=== PATIENT | female | born 1960 | race Caucasian/White ===

== ENCOUNTER → 2018-12-20 | Day surgery (SDC) | payer MEDICARE ==
[2018-12-14 11:25] LABS: BASOPHILS # (AUTO) 0.1 (0.0-0.1); BASOPHILS % 0.5 % (0.0-1.0); EOSINOPHILS # (AUTO) 0.3 (0.0-0.4); EOSINOPHILS % 2.5 % (0.0-6.0); HEMATOCRIT 39.9 % (34.2-44.1); HEMOGLOBIN 13.2 g/dL (12.0-16.0); LYMPHOCYTES # (AUTO) 3.7 (1.0-3.2); LYMPHOCYTES % 33.3 % (18.0-39.1); MEAN CORPUSCULAR HEMOGLOBIN 28.8 pg (28-32); MEAN CORPUSCULAR HGB CONC 33.1 g/dL (31-35); MEAN CORPUSCULAR VOLUME 87.1 fL (81-99); MONOCYTES # (AUTO) 0.8 (0.2-0.8); MONOCYTES % 7.1 % (4.4-11.3); NEUTROPHILS # (AUTO) 6.2 (2.1-6.9); NEUTROPHILS % 56.2 % (38.7-80.0); PLATELET COUNT 357 x10e3/uL (140-360); RED BLOOD COUNT 4.58 x10e6/uL (3.6-5.1); RED CELL DISTRIBUTION WIDTH 14.2 % (11.7-14.4)
[2018-12-14 11:54] LABS: INR 0.89; PROTHROMBIN TIME 12.5 seconds (11.9-14.5)
[2018-12-14 11:55] LABS: PARTIAL THROMBOPLASTIN TIME 25.7 seconds (23.8-35.5)
[2018-12-14 12:06] LABS: ALANINE AMINOTRANSFERASE 18 IU/L (0-55); ALBUMIN 3.9 g/dL (3.5-5.0); ALBUMIN/GLOBULIN RATIO 0.9 (0.8-2.0); ALKALINE PHOSPHATASE 113 IU/L (40-150); ANION GAP 10.6 mmol/L (8-16); BLOOD UREA NITROGEN 14 mg/dL (7-26); BUN/CREATININE RATIO 18 (6-25); CARBON DIOXIDE 29 mmol/L (22-29); CHLORIDE 102 mmol/L (98-107); CREATININE, SERUM 0.77 mg/dL (0.57-1.11); EST GLOMERULAR FILTRATION RATE > 60 ML/MIN (60-); GLUCOSE 98 mg/dL (74-118); POTASSIUM 4.6 mmol/L (3.5-5.1); SODIUM 137 mmol/L (136-145)
--- NOTE | 2018-12-14 12:50 | Diagnostic Imaging Report ---
EXAM: CHEST 2 VIEWS DATE: 12/14/2018 10:38 AM INDICATION: ^PREOP FOR LEFT HEART CATHETERIZATION ^[id number] ^[id number] COMPARISON: None FINDINGS: Lines and tubes: None Heart size normal. No focal pulmonary opacity, pleural effusion or pneumothorax. Haziness at the medial right lung base compatible with epicardial fat pad. Upper abdomen unremarkable. No acute bony abnormality. IMPRESSION: No evidence for acute disease. Signed by: Dr. Devaughn Leblanc M.D. on 12/14/2018 12:47 PM
[~2018-12-20] VITALS: Ht 162.6 cm; Wt 74.8 kg
[2018-12-20] VITALS (19 sets, daily range): BP systolic 135–191; BP diastolic 69–98
[~2018-12-20] MED LIST: ALENDRONATE SOD70 MG PO; ASPIRIN325 MG PO; ATORVASTATIN CA20 MG PO; ATROPINE SULFATE 0.1 MG/ML 10ML SYR ONE; BENICAR20 MG PO; BIVALRIUDIN 250 MG/VIAL VIAL IV ONE; BROMFENAC OU; CLONIDINE HCL0.2 MG PO; CLOPIDOGREL BISULFATE 75 MG TAB ONE; CLOPIDOGREL75 MG PO; FENTANYL CITRATE/PF 100MCG/2 ML INJ ONE; HEPARIN SOD (PORCINE) 1000 UNIT/ML 30ML ONE; HEPARIN SOD/SOD CHLORIDE 2,000 ML ONE; HYDRALAZINE HCL 20 MG/ML VIAL ONE; IOPAMIDOL 370 MG/ML 200 ML INFUS..BTL INJ ONE; LIDOCAINE HCL 2% LOCAL 20 ML VIAL ONE; METFORMIN HCL500 MG PO; METOPROLOL TART25 MG PO; MIDAZOLAM HCL 2 MG/2 ML VIAL ONE; MORPHINE SULFATE INJ 4 MG/ML INJ 1ML ONE; NITROGLYCERIN/D5W 200 MCG/ML 250 ML ONE; NITROGLYCERIN0.4 MG SL; OMEPRAZOLE40 MG PO; PREDNISOLO15 MG/5 ML OU; RESTASIS1 EACH OS; SODIUM CHLORIDE 0.9% 1000ML 1,000 ML ONE; SODIUM CHLORIDE 0.9% 50ML 50 ML ONE; SYMBICORT 16010.2 GM INH; TRIAMTERENE-HCTZ1 EA PO; VITAMIN D400 UNIT PO
--- OUTSIDE RECORDS SUMMARY | 2018-12-20 07:04 | XMS REPORT | Clinical Summary ---
Author Author [facility] Organization [facility] Address Unknown Phone Unavailable Care Team Providers Care Dredging Inspector Name Role Phone Joel Russell MD PCP Allergies Comments Active Allergy Reactions Severity Noted Date Codeine Rash Low 04/25/2018 Medications End Date Status Medication Sig Dispensed Refills Start Date Active alendronate (FOSAMAX) 70 TK 1 T PO 1 MG tablet ONCE A WEEK 8 Active amLODIPine (NORVASC) 10 TK 1/2 T PO 1 mg tablet ONCE D 8 Active atorvastatin (LIPITOR) 80 TK 1 T PO QD 1 MG tablet 8 Active clonIDINE HCl (CATAPRES) TK 1 T PO BID 1 0.2 MG tablet WHEN SBP OVER 8 160/90 Active RESTASIS 0.05 % 1 ophthalmic emulsion 8 Active dicyclomine (BENTYL) 10 TK 2 CS PO 1 MG capsule QID 8 Active ibuprofen (ADVIL,MOTRIN) TK 1 T PO BID 1 800 MG tablet 8 Active metFORMIN (GLUCOPHAGE) TK 1 T PO 0 500 mg tablet BID 8 Active omeprazole (PriLOSEC) 40 TK 1 C PO QD 1 MG capsule 8 Active prednisoLONE acetate 1 (PRED FORTE) 1 % 8 ophthalmic suspension Active olmesartan (BENICAR) 40 TK 1 T PO QD 1 MG tablet 8 Active cholecalciferol, vitamin Take 1,000 0 D3, (VITAMIN D3) 1,000 Units by unit tablet mouth daily. Active budesonide-formoterol Inhale 2 0 (SYMBICORT) 160-4.5 puffs 2 (two) mcg/actuation inhaler times a day. Active bromfenac (XIBROM) 0.09 % 1 drop 2 0 ophthalmic solution (two) times a day. 04/25/2018 Discontinued esomeprazole (NexIUM) 40 TK 1 C PO QD 0 MG capsule 8 Active Problems No known active problems Encounters Care Team Description Date Type Specialty Deion Perry MD 04/28/2018 Anesthesia General Surgery Event Boyd Johnson MD Cholecystectomy, Laparoscopic, Robot-Assisted 04/28/2018 Surgery General Surgery Boyd Johnson MD Gallstone ileus 04/28/2018 Hospital General Surgery Encounter Boyd Johnson MD Preoperative testing 04/25/2018 Hospital Radiology Encounter Boyd Johnson MD Preoperative testing (Primary Dx) 04/25/2018 Pre-Admit Pre-Admission Testing Testing Appointment after 12/19/2017 Family History Medical History Relation Name Comments Heart disease Brother Cancer Father Diabetes Father Heart disease Father Cancer Mother No Known Problems Sister Relation Name Status Comments Brother Father Mother Sister Social History Date Tobacco Use Types Packs/Day Years Used Current Every Day Smoker Cigarettes 0.5 30 Smokeless Tobacco: Never Used Alcohol Use Drinks/Week oz/Week Comments Yes rarely Sex Assigned at Date Recorded Not on file Industry Job Start Date Occupation Not on file Not on file Not on file Travel End Travel History Travel Start No recent travel history available. Last Filed Vital Signs Time Taken Vital Sign Reading 04/28/2018 6:16 PM CDT Blood Pressure 187/85 04/28/2018 6:16 PM CDT Pulse 66 04/28/2018 5:57 PM CDT Temperature 36.6 C (97.8 F) 04/28/2018 6:16 PM CDT Respiratory Rate 18 04/28/2018 6:16 PM CDT Oxygen Saturation 93% - Inhaled Oxygen - Concentration 04/28/2018 11:24 AM CDT Weight 78.6 kg (173 lb 4.8 oz) 04/28/2018 11:24 AM CDT Height 162.6 cm (5' 4") 04/28/2018 11:24 AM CDT Body Mass Index 29.75 Plan of Treatment Health Maintenance Due Date Last Done Comments BREAST CANCER SCREENING 2010 COLONOSCOPY SCREENING 2010 SHINGLES VACCINES (#1) 2010 INFLUENZA VACCINE 02/01/2019 04/03/2017, 04/03/2016 Implants Device Identifier Shelf Expiration Date Model / Serial / Lot Implanted Type Area Manufactur er [id number] / / Clip [employer] Ml - Surgical N/A: N/A TELEFLEX [id number] Implants; MEDICAL Implanted: 04/28/2018 (Quantity not Expanders; on file) Extenders; Surgical Wires Procedures Comments Procedure Name Priority Date/Time Associated Diagnosis POC GLUCOSE Routine 04/28/2018 3:19 PM CDT SURGICAL PATHOLOGY Routine 04/28/2018 REQUEST 2:59 PM CDT NE AN ELECTIVE Routine 04/28/2018 ENDOTRACHEAL AIRWAY 1:45 PM CDT Procedure Note - He Malloy, ADJUNCT SOCIOLOGY PROFESSOR - 04/28/2018 1:45 PM CDT Airway Date/Time: 04/28/2018 1:27 PM Performed by: HE MALLOY Authorized by: HE MALLOY Location: OR Urgency: Elective Difficult Airway: No Anesthesio logist: STEVEN HOLDEN Resident/C RNA/AA: HE MALLOY Preoxygena jesi with 100% O2: Yes C-spine Precaution s Maintained Throughout : Yes Mask Ventilatio n: Easy mask Final Airway Type: Endotrache al airway Final Endotrache al Airway: ETT Cuffed: Yes Technique Used: Direct laryngosco py Insertion Site: Oral Blade Type: Juan Luis Laryngosco pe Blade/Vide olaryngosc ope Blade Size: 3 ETT Size (mm): 7.0 Cuff at minimum occlusion pressure: Yes Measured from: Lips ETT to Lips (cm): 21 Placement Verified by: CO2 detection, direct visualizat ion and equal breath sounds Laryngosco pic view: Grade I - full view of glottis Rapid Sequence Induction (RSI): No Modified RSI: No Number of Attempts at Approach: 1 POC GLUCOSE Routine 04/28/2018 11:44 AM CDT XR CHEST 2 VW Routine 04/25/2018 Preoperative testing 12:06 PM CDT ESTIMATED GFR Routine 04/25/2018 11:32 AM CDT COMPREHENSIVE METABOLIC Routine 04/25/2018 Preoperative testing PANEL 11:32 AM CDT HC COMPLETE BLD COUNT Routine 04/25/2018 Preoperative testing W/AUTO DIFF 11:32 AM CDT ECG PRE/POST OP Routine 04/25/2018 Preoperative testing 11:30 AM CDT after 12/19/2017 Results * POC glucose (04/28/2018 3:19 PM CDT) Only the most recent of 2 results within the time period is included. Pathologist [facility] POC glucose 167 (H) 65 - 100 mg/dL [facility] Comment: OF PATHOLOGY Meter ID: [id number] AND GENOMIC Lease Broker: [employer] Specimen Performing Organization Address City/State/Zipcode Phone Number [facility] [address] [place] [address] PATHOLOGY AND GENOMIC MEDICINE * Surgical pathology request (04/28/2018 2:59 PM CDT) Pathologist [facility] OF PATHOLOGY AND GENOMIC MEDICINE Surgical See link below for PDF Lab [facility] pathology Report OF PATHOLOGY report AND GENOMIC MEDICINE Result status This is Final Report for [facility] [id number] OF PATHOLOGY AND GENOMIC MEDICINE Specimen Performing Organization Address City/State/Zipcode Phone Number [facility] [address] [place] [address] PATHOLOGY AND GENOMIC MEDICINE * XR Chest 2 Vw (04/25/2018 12:06 PM CDT) Specimen Narrative Performed At PROCEDURE:XR CHEST 2 VW RADIANT CLINICAL HISTORY:Z01.818 Encounter for other preprocedural examination, preop COMPARISON:None. TECHNIQUE: 2 views of the chest were performed in the PA and lateral projection. FINDINGS: No active pleural, parenchymal, or mediastinal abnormality is noted. Noacute abnormality is demonstrated of the visualized bones of the thorax. IMPRESSION: Noacute abnormality in the chest. [facility][id number] Procedure Note Hm Interface, Radiology Results Incoming - 04/25/2018 1:12 PM CDT PROCEDURE: XR CHEST 2 VW CLINICAL HISTORY: Z01.818 Encounter for other preprocedural examination, preop COMPARISON: None. TECHNIQUE: 2 views of the chest were performed in the PA and lateral projection. FINDINGS: No active pleural, parenchymal, or mediastinal abnormality is noted. No acute abnormality is demonstrated of the visualized bones of the thorax. IMPRESSION: No acute abnormality in the chest. [facility][id number] Performing Organization Address City/State/Zipcode Phone Number [address] [address] [place] [address] * Estimated GFR (04/25/2018 11:32 AM CDT) [facility] Estimated GFR >=90 mL/min/1.73 m2 [facility] Comment: OF PATHOLOGY CatergoryUnitsInte AND GENOMIC rpretation MEDICINE G1 >=90 Normal or high G2 60-89Mildly decreased [id number] Mildly to moderately decreased P2t66-86 Moderately to severely decreased G4 15-29Severely decreased G5 <15Kidney failure The eGFR was calculated using the Chronic Kidney Disease Epidemiology Collaboration (CKD-EPI) equation. Interpretation is based on recommendations of the National Kidney Foundation-Kidney Disease Outcomes Quality Initiative (NKF-KDOQI) published in 2014. Specimen Plasma specimen Performing Organization Address City/State/Zipcode Phone Number [place] [phone] [place] [address] PATHOLOGY AND GENOMIC MEDICINE * CBC with platelet and differential (04/25/2018 11:32 AM CDT) [facility] WBC 12.2 (H) 4.2 - 11.0 k/uL [facility] OF PATHOLOGY AND GENOMIC MEDICINE RBC 4.31 4.04 - 5.86 m/uL [facility] OF PATHOLOGY AND GENOMIC MEDICINE HGB 12.4 11.5 - 15.3 g/dL [facility] PATHOLOGY AND GENOMIC MEDICINE HCT 38.7 34.0 - 45.0 % [facility] OF PATHOLOGY AND GENOMIC MEDICINE MCV 89.8 80.0 - 98.0 fL [facility] OF PATHOLOGY AND GENOMIC MEDICINE MCH 28.8 27.0 - 34.0 pg [facility] OF PATHOLOGY AND GENOMIC MEDICINE MCHC 32.0 31.5 - 36.5 g/dL [facility] OF PATHOLOGY AND GENOMIC MEDICINE RDW - SD 45.1 37.0 - 51.0 fL [facility] OF PATHOLOGY AND GENOMIC MEDICINE MPV 10.1 7.4 - 10.4 fL [facility] OF PATHOLOGY AND GENOMIC MEDICINE Platelet count 397 150 - 400 k/uL [facility] OF PATHOLOGY AND GENOMIC MEDICINE Nucleated RBC 0.00 /100 WBC [facility] OF PATHOLOGY AND GENOMIC MEDICINE Neutrophils 53.8 36.0 - 66.0 % [facility] OF PATHOLOGY AND GENOMIC MEDICINE Lymphocytes 35.8 24.0 - 44.0 % [facility] OF PATHOLOGY AND GENOMIC MEDICINE Monocytes 7.5 (H) 0.0 - 6.0 % [facility] OF PATHOLOGY AND GENOMIC MEDICINE Eosinophils 1.8 0.0 - 6.0 % [facility] OF PATHOLOGY AND GENOMIC MEDICINE Basophils 0.6 0.0 - 1.2 % [facility] OF PATHOLOGY AND GENOMIC MEDICINE Immature 0.5 0.0 - 1.0 % [facility] granulocytes OF PATHOLOGY AND GENOMIC MEDICINE Specimen Blood Performing Organization Address City/[facility] Phone Number [place] [address] [place] [address] PATHOLOGY AND GENOMIC MEDICINE * Comprehensive metabolic panel (04/25/2018 11:32 AM CDT) Sodium 140 135 - 150 mEq/L [facility] OF PATHOLOGY AND GENOMIC MEDICINE Potassium 4.5 3.5 - 5.0 mEq/L [facility] OF PATHOLOGY AND GENOMIC MEDICINE Chloride 103 98 - 112 mEq/L [facility] OF PATHOLOGY AND GENOMIC MEDICINE CO2 30 24 - 31 mmol/L [facility] OF PATHOLOGY AND GENOMIC MEDICINE Anion gap 7@ANIO 7 - 15 mEq/L [facility] OF PATHOLOGY AND GENOMIC MEDICINE BUN 15 7 - 18 mg/dL [facility] OF PATHOLOGY AND GENOMIC MEDICINE Creatinine 0.60 0.50 - 0.90 mg/dL [facility] OF PATHOLOGY AND GENOMIC MEDICINE Glucose 100 65 - 100 mg/dL [facility] OF PATHOLOGY AND GENOMIC MEDICINE Calcium 9.5 8.3 - 10.2 mg/dL [facility] OF PATHOLOGY AND GENOMIC MEDICINE Protein 8.2 6.3 - 8.3 g/dL [facility] OF PATHOLOGY AND GENOMIC MEDICINE Albumin 3.7 3.5 - 5.0 g/dL [facility] OF PATHOLOGY AND GENOMIC MEDICINE A/G ratio 0.8 0.7 - 3.8 [facility] OF PATHOLOGY AND GENOMIC MEDICINE Alkaline 112 (H) 0 - 104 U/L [facility] phosphatase OF PATHOLOGY AND GENOMIC MEDICINE AST 21 10 - 35 U/L [facility] OF PATHOLOGY AND GENOMIC MEDICINE ALT 24 5 - 50 U/L [facility] OF PATHOLOGY AND GENOMIC MEDICINE Total bilirubin 0.3 0.2 - 1.2 mg/dL [facility] OF PATHOLOGY AND GENOMIC MEDICINE Specimen Plasma specimen Performing Organization Address City/[facility]/Zipcode Phone Number [place] [address] [place] [address] PATHOLOGY AND GENOMIC MEDICINE * ECG Pre/Post Op (04/25/2018 11:30 AM CDT) Ventricular 53 [facility] rate Atrial rate 53 [facility] NE interval 148 [facility] QRSD interval 88 [facility] QT interval 434 [facility] QTC interval 407 [facility] P axis 1 32 [facility] QRS axis 1 35 [facility] T wave axis 48 [facility] EKG impression Sinus bradycardia-Otherwise [facility] normal ECG-No previous ECGs available- Specimen Performing Organization Address City/State/Zipcode Phone Number [facility] M[facility] [address] [place] [address] after 12/19/2017 Insurance Type Payer Benefit Subscriber ID Effective Phone Address Plan / Dates Group HMO [employer] xxxxxxxxx [id number] STAR+PLUS resent JEFFRY O [facility] xxxxxxxx 2018-P MCR resent Advance Directives Patient has advance care planning documents on file. For more information, pleas e contact: Reji Carrizales [address] [place] [address]
--- OUTSIDE RECORDS SUMMARY | 2018-12-20 07:05 | XMS REPORT ---
[facility] Address Unknown Phone Unavailable Care Team Providers Care Metal Lather Name Role Phone JOSH SAPP Unavailable Unavailable Payers Payer Name Policy Type Policy Number Effective Date Expiration Date Problems This patient has no known problems. Allergies, Adverse Reactions, Alerts Allergy Name Allergy Type Status Severity Reaction(s) Onset Date Inactive Date Treating Clinician Comments codeine DA Active U 2018-03-23 00:00:00 codeine DA Active U 2010-03-27 00:00:00 Medications This patient has no known medications. Results Test Description Test Time Test Comments Text Results Atomic Results Result Comments CHEST 2 VIEWS 2018-12-14 12:46:00 [facility] [address], [place] [address] Patient Name: DWIGHT ANG MR #: [id number] : 1960 Age/Sex: 57/F Req #: [id number] Adm Physician: Ordered by: JOSH SAPP MD Report #: [id number] Location: CELL ROOM SUPERVISOR Room/Bed: Procedure: [id number] DX/CHEST 2 VIEWS Exam Date: 12/14/18 Exam Time: 1140 REPORT STATUS: Signed EXAM: CHEST 2 VIEWS DATE: 12/14/2018 10:38 AM INDICATION: PREOP FOR LEFT HEART CATHETERIZATION [id number] COMPARISON: None FINDINGS: Lines and tubes: None Heart size normal. No focal pulmonary opacity, pleural effusion or pneumothorax. Haziness at the medial right lung base compatible with epicardial fat pad. Upper abdomen unremarkable. No acute bony abnormality. IMPRESSION: No evidence for acute disease. Signed by: Dr. Devaughn Leblanc M.D. on 12/14/2018 12:47 PM Dictated By: DEVAUGHN LEBLANC MD 46 Transcribed By: NATHAN on 12/14/181246 COPY TO: JOSH SAPP MD GLUBED 2018-10-25 13:00:00 GLUBED (test code=GLUBED) 117 mg/dL 74-106 Performed by certified spot machine operator at [facility] CBC W/AUTO [id number] 10:24:00* Test Item Value Reference Range Comments WHITE BLOOD CELL (test code=WBC) 8.7 K/mm3 4.5-12.5 RED BLOOD CELL (test code=RBC) 4.12 mill/mm3 3.7-5.2 HEMOGLOBIN (test code=HGB) 11.2 gram/dL 11.5-15.5 HEMATOCRIT (test code=HCT) 37.4 % 36.0-46.0 MEAN CELL VOLUME (test code=MCV) 90.8 fL 80-98 MEAN CELL HGB (test code=MCH) 27.2 picogram 27.0-33.0 MEAN CELL HGB CONCETRATION (test code=MCHC) 29.9 gram/dL 33.0-36.0 RED CELL DISTRIBUTION WIDTH (test code=RDW) 14.6 % 11.6-16.2 RED CELL DISTRIBUTION WIDTH SD (test code=RDW-SD) 48.2 fL 37.0-51.0 PLATELET COUNT (test code=PLT) 289 K/mm3 150-450 MEAN PLATELET VOLUME (test code=MPV) 9.9 fL 6.7-11.0 NEUTROPHIL % (test code=NT%) 48.0 % 39.0-69.0 IMMATURE GRANULOCYTE % (test code=IG%) 0.3 % 0.0-5.0 LYMPHOCYTE % (test code=LY%) 37.6 % 25.0-55.0 MONOCYTE % (test code=MO%) 10.3 % 0.0-10.0 EOSINOPHIL % (test code=EO%) 3.1 % 0.0-5.0 BASOPHIL % (test code=BA%) 0.7 % 0.0-1.0 NUCLEATED RBC % (test code=NRBC%) 0.0 % 0-0 NEUTROPHIL # (test code=NT#) 4.17 K/mm3 1.8-7.7 IMMATURE GRANULOCYTE # (test code=IG#) 0.03 x10 3/uL 0-0.03 LYMPHOCYTE # (test code=LY#) 3.26 K/mm3 1.0-5.0 MONOCYTE # (test code=MO#) 0.89 K/mm3 0-0.8 EOSINOPHIL # (test code=EO#) 0.27 K/mm3 0.0-0.5 BASOPHIL # (test code=BA#) 0.06 K/mm3 0.0-0.2 NUCLEATED RBC # (test code=NRBC#) 0.00 K/mm3 0.0-0.1 MANUAL DIFF REQUIRED (test code=MDIFF) NO, ONLY SCAN NEEDED DIFFERENTIAL [id number] 10:24:00* Test Item Value Reference Range Comments STAIN ACCEPTABILITY (test code=STN ACCEPTABLE) STAIN ACCEPTABLE POIKILOCYTOSIS (test code=POIK) 1+ ANISOCYTOSIS (test code=ANISO) 1+ MACROCYTOSIS (test code=MACR) 1+ MORPHOLOGY COMMENT (test code=MOC) PLATELET ESTIMATE (test code=PLTEST) ADEQUATE PLATELET MORPHOLOGY (test code=PLTMORPH) NORMAL CBC W/AUTO [id number] 10:24:00* Test Item Value Reference Range Comments WHITE BLOOD CELL (test code=WBC) 8.7 K/mm3 4.5-12.5 RED BLOOD CELL (test code=RBC) 4.12 mill/mm3 3.7-5.2 HEMOGLOBIN (test code=HGB) 11.2 gram/dL 11.5-15.5 HEMATOCRIT (test code=HCT) 37.4 % 36.0-46.0 MEAN CELL VOLUME (test code=MCV) 90.8 fL 80-98 MEAN CELL HGB (test code=MCH) 27.2 picogram 27.0-33.0 MEAN CELL HGB CONCETRATION (test code=MCHC) 29.9 gram/dL 33.0-36.0 RED CELL DISTRIBUTION WIDTH (test code=RDW) 14.6 % 11.6-16.2 RED CELL DISTRIBUTION WIDTH SD (test code=RDW-SD) 48.2 fL 37.0-51.0 PLATELET COUNT (test code=PLT) 289 K/mm3 150-450 MEAN PLATELET VOLUME (test code=MPV) 9.9 fL 6.7-11.0 NEUTROPHIL % (test code=NT%) 48.0 % 39.0-69.0 IMMATURE GRANULOCYTE % (test code=IG%) 0.3 % 0.0-5.0 LYMPHOCYTE % (test code=LY%) 37.6 % 25.0-55.0 MONOCYTE % (test code=MO%) 10.3 % 0.0-10.0 EOSINOPHIL % (test code=EO%) 3.1 % 0.0-5.0 BASOPHIL % (test code=BA%) 0.7 % 0.0-1.0 NUCLEATED RBC % (test code=NRBC%) 0.0 % 0-0 NEUTROPHIL # (test code=NT#) 4.17 K/mm3 1.8-7.7 IMMATURE GRANULOCYTE # (test code=IG#) 0.03 x10 3/uL 0-0.03 LYMPHOCYTE # (test code=LY#) 3.26 K/mm3 1.0-5.0 MONOCYTE # (test code=MO#) 0.89 K/mm3 0-0.8 EOSINOPHIL # (test code=EO#) 0.27 K/mm3 0.0-0.5 BASOPHIL # (test code=BA#) 0.06 K/mm3 0.0-0.2 NUCLEATED RBC # (test code=NRBC#) 0.00 K/mm3 0.0-0.1 MANUAL DIFF REQUIRED (test code=MDIFF) NO, ONLY SCAN NEEDED DIFFERENTIAL [id number] 10:24:00* Test Item Value Reference Range Comments STAIN ACCEPTABILITY (test code=STN ACCEPTABLE) STAIN ACCEPTABLE POIKILOCYTOSIS (test code=POIK) 1+ ANISOCYTOSIS (test code=ANISO) 1+ MACROCYTOSIS (test code=MACR) 1+ PLATELET ESTIMATE (test code=PLTEST) ADEQUATE PLATELET MORPHOLOGY (test code=PLTMORPH) NORMAL COMPREHENSIVE METABOLIC [id number] 06:44:00* Test Item Value Reference Range Comments SODIUM (test code=NA) 142 mmol/L 136-145 POTASSIUM (test code=K) 3.9 mmol/L 3.5-5.1 CHLORIDE (test code=CL) 111.0 mmol/L 98-107 CARBON DIOXIDE (test code=CO2) 23.0 mmol/L 21-32 ANION GAP (test code=GAP) 11.9 10-20 GLUCOSE (test code=GLU) 117 mg/dL 74-106 BLOOD UREA NITROGEN (test code=BUN) 12 mg/dL 7-18 GLOMERULAR FILTRATION RATE (test code=GFR) > 60 mL/min >=60 Estimated GFR by using Modified MDRD formula.Chronic kidney disease is defined as either kidney damageor GFR <60 mL/min/1.73 m2 for >3 months. CREATININE (test code=CREAT) 0.70 mg/dL 0.55-1.02 Note change in reference range due to change in reagent. BUN/CREATININE RATIO (test code=BUN/CREA) 17.1 10-20 TOTAL PROTEIN (test code=PROT) 6.9 gram/dL 6.4-8.2 ALBUMIN (test code=ALB) 3.2 g/dL 3.4-5.0 GLOBULIN (test code=GLOB) 3.7 gram/dL 2.7-4.2 ALBUMIN/GLOBULIN RATIO (test code=A/G) 0.9 0.75-1.50 CALCIUM (test code=CA) 8.6 mg/dL 8.5-10.1 BILIRUBIN TOTAL (test code=BILT) 0.40 mg/dL 0.0-1.0 SGOT/AST (test code=AST) 17 IUnit/L 15-37 SGPT/ALT (test code=ALT) 19 IUnit/L 12-78 ALKALINE PHOSPHATASE TOTAL (test code=ALKP) 100 IUnit/L 45-117 Note change in reference range due to change in reagent. [id number] 06:44:00* Test Item Value Reference Range Comments MAGNESIUM (test code=MAG) 2.1 mg/dL 1.8-2.4 COMPREHENSIVE METABOLIC [id number] 06:40:00* Test Item Value Reference Range Comments SODIUM (test code=NA) 142 mmol/L 136-145 POTASSIUM (test code=K) 3.9 mmol/L 3.5-5.1 CHLORIDE (test code=CL) 111.0 mmol/L 98-107 CARBON DIOXIDE (test code=CO2) mmol/L 21-32 ANION GAP (test code=GAP) 10-20 GLUCOSE (test code=GLU) mg/dL 74-106 BLOOD UREA NITROGEN (test code=BUN) mg/dL 7-18 GLOMERULAR FILTRATION RATE (test code=GFR) mL/min >=60 CREATININE (test code=CREAT) mg/dL 0.55-1.02 BUN/CREATININE RATIO (test code=BUN/CREA) 10-20 TOTAL PROTEIN (test code=PROT) gram/dL 6.4-8.2 ALBUMIN (test code=ALB) g/dL 3.4-5.0 GLOBULIN (test code=GLOB) gram/dL 2.7-4.2 ALBUMIN/GLOBULIN RATIO (test code=A/G) 0.75-1.50 CALCIUM (test code=CA) mg/dL 8.5-10.1 BILIRUBIN TOTAL (test code=BILT) mg/dL 0.0-1.0 SGOT/AST (test code=AST) IUnit/L 15-37 SGPT/ALT (test code=ALT) IUnit/L 12-78 ALKALINE PHOSPHATASE TOTAL (test code=ALKP) IUnit/L 45-117 [id number] 06:40:00* Test Item Value Reference Range Comments MAGNESIUM (test code=MAG) mg/dL 1.8-2.4 CBC W/AUTO [id number] 06:05:00* Test Item Value Reference Range Comments WHITE BLOOD CELL (test code=WBC) 8.7 K/mm3 4.5-12.5 RED BLOOD CELL (test code=RBC) 4.12 mill/mm3 3.7-5.2 HEMOGLOBIN (test code=HGB) 11.2 gram/dL 11.5-15.5 HEMATOCRIT (test code=HCT) 37.4 % 36.0-46.0 MEAN CELL VOLUME (test code=MCV) 90.8 fL 80-98 MEAN CELL HGB (test code=MCH) 27.2 picogram 27.0-33.0 MEAN CELL HGB CONCETRATION (test code=MCHC) 29.9 gram/dL 33.0-36.0 RED CELL DISTRIBUTION WIDTH (test code=RDW) 14.6 % 11.6-16.2 RED CELL DISTRIBUTION WIDTH SD (test code=RDW-SD) 48.2 fL 37.0-51.0 PLATELET COUNT (test code=PLT) 289 K/mm3 150-450 MEAN PLATELET VOLUME (test code=MPV) 9.9 fL 6.7-11.0 NEUTROPHIL % (test code=NT%) 48.0 % 39.0-69.0 IMMATURE GRANULOCYTE % (test code=IG%) 0.3 % 0.0-5.0 LYMPHOCYTE % (test code=LY%) 37.6 % 25.0-55.0 MONOCYTE % (test code=MO%) 10.3 % 0.0-10.0 EOSINOPHIL % (test code=EO%) 3.1 % 0.0-5.0 BASOPHIL % (test code=BA%) 0.7 % 0.0-1.0 NUCLEATED RBC % (test code=NRBC%) 0.0 % 0-0 NEUTROPHIL # (test code=NT#) 4.17 K/mm3 1.8-7.7 IMMATURE GRANULOCYTE # (test code=IG#) 0.03 x10 3/uL 0-0.03 LYMPHOCYTE # (test code=LY#) 3.26 K/mm3 1.0-5.0 MONOCYTE # (test code=MO#) 0.89 K/mm3 0-0.8 EOSINOPHIL # (test code=EO#) 0.27 K/mm3 0.0-0.5 BASOPHIL # (test code=BA#) 0.06 K/mm3 0.0-0.2 NUCLEATED RBC # (test code=NRBC#) 0.00 K/mm3 0.0-0.1 MANUAL DIFF REQUIRED (test code=MDIFF) NO, ONLY SCAN NEEDED DIFFERENTIAL [id number] 06:05:00* Test Item Value Reference Range Comments STAIN ACCEPTABILITY (test code=STN ACCEPTABLE) CABOT RINGS (test code=CAB) MORPHOLOGY COMMENT (test code=MOC) PLATELET ESTIMATE (test code=PLTEST) PLATELET MORPHOLOGY (test code=PLTMORPH) CBC W/AUTO [id number] 06:05:00* Test Item Value Reference Range Comments WHITE BLOOD CELL (test code=WBC) 8.7 K/mm3 4.5-12.5 RED BLOOD CELL (test code=RBC) 4.12 mill/mm3 3.7-5.2 HEMOGLOBIN (test code=HGB) 11.2 gram/dL 11.5-15.5 HEMATOCRIT (test code=HCT) 37.4 % 36.0-46.0 MEAN CELL VOLUME (test code=MCV) 90.8 fL 80-98 MEAN CELL HGB (test code=MCH) 27.2 picogram 27.0-33.0 MEAN CELL HGB CONCETRATION (test code=MCHC) 29.9 gram/dL 33.0-36.0 RED CELL DISTRIBUTION WIDTH (test code=RDW) 14.6 % 11.6-16.2 RED CELL DISTRIBUTION WIDTH SD (test code=RDW-SD) 48.2 fL 37.0-51.0 PLATELET COUNT (test code=PLT) 289 K/mm3 150-450 MEAN PLATELET VOLUME (test code=MPV) 9.9 fL 6.7-11.0 NEUTROPHIL % (test code=NT%) 48.0 % 39.0-69.0 IMMATURE GRANULOCYTE % (test code=IG%) 0.3 % 0.0-5.0 LYMPHOCYTE % (test code=LY%) 37.6 % 25.0-55.0 MONOCYTE % (test code=MO%) 10.3 % 0.0-10.0 EOSINOPHIL % (test code=EO%) 3.1 % 0.0-5.0 BASOPHIL % (test code=BA%) 0.7 % 0.0-1.0 NUCLEATED RBC % (test code=NRBC%) 0.0 % 0-0 NEUTROPHIL # (test code=NT#) 4.17 K/mm3 1.8-7.7 IMMATURE GRANULOCYTE # (test code=IG#) 0.03 x10 3/uL 0-0.03 LYMPHOCYTE # (test code=LY#) 3.26 K/mm3 1.0-5.0 MONOCYTE # (test code=MO#) 0.89 K/mm3 0-0.8 EOSINOPHIL # (test code=EO#) 0.27 K/mm3 0.0-0.5 BASOPHIL # (test code=BA#) 0.06 K/mm3 0.0-0.2 NUCLEATED RBC # (test code=NRBC#) 0.00 K/mm3 0.0-0.1 MANUAL DIFF REQUIRED (test code=MDIFF) NO, ONLY SCAN NEEDED DIFFERENTIAL [id number] 06:05:00* Test Item Value Reference Range Comments STAIN ACCEPTABILITY (test code=STN ACCEPTABLE) CABOT RINGS (test code=CAB) MORPHOLOGY COMMENT (test code=MOC) PLATELET ESTIMATE (test code=PLTEST) PLATELET MORPHOLOGY (test code=PLTMORPH) CBC W/AUTO [id number] 06:05:00* Test Item Value Reference Range Comments WHITE BLOOD CELL (test code=WBC) 8.7 K/mm3 4.5-12.5 RED BLOOD CELL (test code=RBC) 4.12 mill/mm3 3.7-5.2 HEMOGLOBIN (test code=HGB) 11.2 gram/dL 11.5-15.5 HEMATOCRIT (test code=HCT) 37.4 % 36.0-46.0 MEAN CELL VOLUME (test code=MCV) 90.8 fL 80-98 MEAN CELL HGB (test code=MCH) 27.2 picogram 27.0-33.0 MEAN CELL HGB CONCETRATION (test code=MCHC) 29.9 gram/dL 33.0-36.0 RED CELL DISTRIBUTION WIDTH (test code=RDW) 14.6 % 11.6-16.2 RED CELL DISTRIBUTION WIDTH SD (test code=RDW-SD) 48.2 fL 37.0-51.0 PLATELET COUNT (test code=PLT) 289 K/mm3 150-450 MEAN PLATELET VOLUME (test code=MPV) 9.9 fL 6.7-11.0 NEUTROPHIL % (test code=NT%) 48.0 % 39.0-69.0 IMMATURE GRANULOCYTE % (test code=IG%) 0.3 % 0.0-5.0 LYMPHOCYTE % (test code=LY%) 37.6 % 25.0-55.0 MONOCYTE % (test code=MO%) 10.3 % 0.0-10.0 EOSINOPHIL % (test code=EO%) 3.1 % 0.0-5.0 BASOPHIL % (test code=BA%) 0.7 % 0.0-1.0 NUCLEATED RBC % (test code=NRBC%) 0.0 % 0-0 NEUTROPHIL # (test code=NT#) 4.17 K/mm3 1.8-7.7 IMMATURE GRANULOCYTE # (test code=IG#) 0.03 x10 3/uL 0-0.03 LYMPHOCYTE # (test code=LY#) 3.26 K/mm3 1.0-5.0 MONOCYTE # (test code=MO#) 0.89 K/mm3 0-0.8 EOSINOPHIL # (test code=EO#) 0.27 K/mm3 0.0-0.5 BASOPHIL # (test code=BA#) 0.06 K/mm3 0.0-0.2 NUCLEATED RBC # (test code=NRBC#) 0.00 K/mm3 0.0-0.1 MANUAL DIFF REQUIRED (test code=MDIFF) NO, ONLY SCAN NEEDED DIFFERENTIAL [id number] 06:05:00* Test Item Value Reference Range Comments STAIN ACCEPTABILITY (test code=STN ACCEPTABLE) MORPHOLOGY COMMENT (test code=MOC) PLATELET ESTIMATE (test code=PLTEST) PLATELET MORPHOLOGY (test code=PLTMORPH) CBC W/AUTO [id number] 06:05:00* Test Item Value Reference Range Comments WHITE BLOOD CELL (test code=WBC) 8.7 K/mm3 4.5-12.5 RED BLOOD CELL (test code=RBC) 4.12 mill/mm3 3.7-5.2 HEMOGLOBIN (test code=HGB) 11.2 gram/dL 11.5-15.5 HEMATOCRIT (test code=HCT) 37.4 % 36.0-46.0 MEAN CELL VOLUME (test code=MCV) 90.8 fL 80-98 MEAN CELL HGB (test code=MCH) 27.2 picogram 27.0-33.0 MEAN CELL HGB CONCETRATION (test code=MCHC) 29.9 gram/dL 33.0-36.0 RED CELL DISTRIBUTION WIDTH (test code=RDW) 14.6 % 11.6-16.2 RED CELL DISTRIBUTION WIDTH SD (test code=RDW-SD) 48.2 fL 37.0-51.0 PLATELET COUNT (test code=PLT) 289 K/mm3 150-450 MEAN PLATELET VOLUME (test code=MPV) 9.9 fL 6.7-11.0 NEUTROPHIL % (test code=NT%) 48.0 % 39.0-69.0 IMMATURE GRANULOCYTE % (test code=IG%) 0.3 % 0.0-5.0 LYMPHOCYTE % (test code=LY%) 37.6 % 25.0-55.0 MONOCYTE % (test code=MO%) 10.3 % 0.0-10.0 EOSINOPHIL % (test code=EO%) 3.1 % 0.0-5.0 BASOPHIL % (test code=BA%) 0.7 % 0.0-1.0 NUCLEATED RBC % (test code=NRBC%) 0.0 % 0-0 NEUTROPHIL # (test code=NT#) 4.17 K/mm3 1.8-7.7 IMMATURE GRANULOCYTE # (test code=IG#) 0.03 x10 3/uL 0-0.03 LYMPHOCYTE # (test code=LY#) 3.26 K/mm3 1.0-5.0 MONOCYTE # (test code=MO#) 0.89 K/mm3 0-0.8 EOSINOPHIL # (test code=EO#) 0.27 K/mm3 0.0-0.5 BASOPHIL # (test code=BA#) 0.06 K/mm3 0.0-0.2 NUCLEATED RBC # (test code=NRBC#) 0.00 K/mm3 0.0-0.1 MANUAL DIFF REQUIRED (test code=MDIFF) NO, ONLY SCAN NEEDED DIFFERENTIAL [id number] 06:05:00* Test Item Value Reference Range Comments STAIN ACCEPTABILITY (test code=STN ACCEPTABLE) CABOT RINGS (test code=CAB) MORPHOLOGY COMMENT (test code=MOC) PLATELET ESTIMATE (test code=PLTEST) PLATELET MORPHOLOGY (test code=PLTMORPH) [id number] 04:05:00* Test Item Value Reference Range Comments GLUBED (test code=GLUBED) 92 mg/dL 74-106 Performed by certified spot machine operator at [facility] [id number] 21:06:00* Test Item Value Reference Range Comments GLUBED (test code=GLUBED) 168 mg/dL 74-106 Performed by certified spot machine operator at [facility] [id number] 15:48:00* Test Item Value Reference Range Comments GLUBED (test code=GLUBED) 120 mg/dL 74-106 Performed by certified spot machine operator at [facility] LIPID PROFILE (CORONARY RISK)2018-10-24 14:29:00* Test Item Value Reference Range Comments TRIGLYCERIDES (test code=TRIG) 125 mg/dL 20-150 CHOLESTEROL (test code=CHOL) 174 mg/dL 0-200 CHOLESTEROL/HDL RATIO (test code=CHOLHDL) 4.0 RATIO 0-4.9 RISK ASSOCIATED WITH CHOL/HDL RATIOS: Risk Male Female1/2 AVERAGE 3.43 3.27AVERAGE 4.97 4.442X AVERAGE 9.55 7.053X AVERAGE 23.39 11.04 REFERENCE VALUE IS RELATED TO RISK LEVELS ASRECOMMENDED BY THE ROSALIND. HEART, LUNG, AND BLOOD INST. HDL CHOLESTEROL (test code=HDL) 40 mg/dL 40-60 LIPOPROTEIN LDL (test code=LDL) 120 mg/dL 100-129 RN PERSONNEL, CONTACT PHYSICIAN IMMEDIATELY IF THIS IS A STROKE, AMI OR CAROTID STENOSIS PATIENT WHEN THE LDL >100 (1ST OCCURENCE, THIS ADMISSION) Reference Interval: mg/dL mmol/L Optimal <100 <2.6Near/above optimal 100-129 2.6- 3.3Borderline High 130-159 3.4-4.1High 160-189 4.1-4.9Very High >=190 >=4.9=========This LDL result is a direct measurement.========= SPECIMEN COMMENTS: If not [id number] 12:22:00* Test Item Value Reference Range Comments GLUBED (test code=GLUBED) 121 mg/dL 74-106 Performed by certified spot machine operator at [facility] [id number] 10:24:00* Test Item Value Reference Range Comments GLUBED (test code=GLUBED) 101 mg/dL 74-106 Performed by certified spot machine operator at [facility] [id number] 08:06:00* Test Item Value Reference Range Comments GLUBED (test code=GLUBED) 118 mg/dL 74-106 Performed by certified spot machine operator at [facility] BASIC METABOLIC [id number] 12:20:00* Test Item Value Reference Range Comments SODIUM (test code=NA) 139 mmol/L 136-145 POTASSIUM (test code=K) 4.0 mmol/L 3.5-5.1 CHLORIDE (test code=CL) 106.0 mmol/L 98-107 CARBON DIOXIDE (test code=CO2) 28.0 mmol/L 21-32 ANION GAP (test code=GAP) 9.0 10-20 GLUCOSE (test code=GLU) 66 mg/dL 74-106 BLOOD UREA NITROGEN (test code=BUN) 13 mg/dL 7-18 GLOMERULAR FILTRATION RATE (test code=GFR) > 60 mL/min >=60 Estimated GFR by using Modified MDRD formula.Chronic kidney disease is defined as either kidney damageor GFR <60 mL/min/1.73 m2 for >3 months. CREATININE (test code=CREAT) 0.70 mg/dL 0.55-1.02 Note change in reference range due to change in reagent. BUN/CREATININE RATIO (test code=BUN/CREA) 18.6 10-20 CALCIUM (test code=CA) 9.5 mg/dL 8.5-10.1 PROTHROMBIN [id number] 11:21:00* Test Item Value Reference Range Comments PROTHROMBIN TIME PATIENT (test code=PTP) 11.5 seconds 9.0-14.0 INTERNATIONAL NORMAL RATIO (test code=INR) 1.0 0.8-1.2 The therapeutic range for oral anticoagulant therapy formost indications is an international normalized ratio (INR)of between 2.0 and 3.0. The recommended therapeutic INRrange for various clinical situations is listed below: Clinical Situation INR range Pulmonary e mbolism treatment (2.0-3.0)Venous thrombosis treatmentVenous thrombosis prophylaxis (high risk surgery)Prevention of systemic embolism from: Acute myocardial infarction Valvular heart disease Atrial fibrillation Mechanical prosthetic heart valves (2.5-3.5) THROMBOPLASTIN TIME [id number] 11:21:00* Test Item Value Reference Range Comments THROMBOPLASTIN TIME PARTIAL (test code=PTT) 31.9 seconds 25.0-36.5 CBC W/AUTO [id number] 11:12:00* Test Item Value Reference Range Comments WHITE BLOOD CELL (test code=WBC) K/mm3 4.5-12.5 RED BLOOD CELL (test code=RBC) mill/mm3 3.7-5.2 HEMOGLOBIN (test code=HGB) 13.3 gram/dL 11.5-15.5 HEMATOCRIT (test code=HCT) 41.4 % 36.0-46.0 MEAN CELL VOLUME (test code=MCV) fL 80-98 MEAN CELL HGB (test code=MCH) picogram 27.0-33.0 MEAN CELL HGB CONCETRATION (test code=MCHC) gram/dL 33.0-36.0 RED CELL DISTRIBUTION WIDTH (test code=RDW) % 11.6-16.2 RED CELL DISTRIBUTION WIDTH SD (test code=RDW-SD) fL 37.0-51.0 PLATELET COUNT (test code=PLT) K/mm3 150-450 MEAN PLATELET VOLUME (test code=MPV) fL 6.7-11.0 NEUTROPHIL % (test code=NT%) % 39.0-69.0 IMMATURE GRANULOCYTE % (test code=IG%) % 0.0-5.0 LYMPHOCYTE % (test code=LY%) % 25.0-55.0 MONOCYTE % (test code=MO%) % 0.0-10.0 EOSINOPHIL % (test code=EO%) % 0.0-5.0 BASOPHIL % (test code=BA%) % 0.0-1.0 NEUTROPHIL # (test code=NT#) K/mm3 1.8-7.7 LYMPHOCYTE # (test code=LY#) K/mm3 1.0-5.0 MONOCYTE # (test code=MO#) K/mm3 0-0.8 EOSINOPHIL # (test code=EO#) K/mm3 0.0-0.5 BASOPHIL # (test code=BA#) K/mm3 0.0-0.2 CBC W/AUTO [id number] 11:12:00* Test Item Value Reference Range Comments WHITE BLOOD CELL (test code=WBC) 9.1 K/mm3 4.5-12.5 RED BLOOD CELL (test code=RBC) 4.72 mill/mm3 3.7-5.2 HEMOGLOBIN (test code=HGB) 13.3 gram/dL 11.5-15.5 HEMATOCRIT (test code=HCT) 41.4 % 36.0-46.0 MEAN CELL VOLUME (test code=MCV) 87.7 fL 80-98 MEAN CELL HGB (test code=MCH) 28.2 picogram 27.0-33.0 MEAN CELL HGB CONCETRATION (test code=MCHC) 32.1 gram/dL 33.0-36.0 RED CELL DISTRIBUTION WIDTH (test code=RDW) 13.9 % 11.6-16.2 RED CELL DISTRIBUTION WIDTH SD (test code=RDW-SD) 44.6 fL 37.0-51.0 PLATELET COUNT (test code=PLT) 361 K/mm3 150-450 MEAN PLATELET VOLUME (test code=MPV) 10.0 fL 6.7-11.0 NEUTROPHIL % (test code=NT%) 41.5 % 39.0-69.0 IMMATURE GRANULOCYTE % (test code=IG%) 0.2 % 0.0-5.0 LYMPHOCYTE % (test code=LY%) 46.3 % 25.0-55.0 MONOCYTE % (test code=MO%) 8.8 % 0.0-10.0 EOSINOPHIL % (test code=EO%) 2.5 % 0.0-5.0 BASOPHIL % (test code=BA%) 0.7 % 0.0-1.0 NUCLEATED RBC % (test code=NRBC%) 0.0 % 0-0 NEUTROPHIL # (test code=NT#) 3.78 K/mm3 1.8-7.7 IMMATURE GRANULOCYTE # (test code=IG#) 0.02 x10 3/uL 0-0.03 LYMPHOCYTE # (test code=LY#) 4.21 K/mm3 1.0-5.0 MONOCYTE # (test code=MO#) 0.80 K/mm3 0-0.8 EOSINOPHIL # (test code=EO#) 0.23 K/mm3 0.0-0.5 BASOPHIL # (test code=BA#) 0.06 K/mm3 0.0-0.2 NUCLEATED RBC # (test code=NRBC#) 0.00 K/mm3 0.0-0.1 MANUAL DIFF REQUIRED (test code=MDIFF) NO - XR CHEST 2 [id number] 10:40:00 FAX: Anuj Pal MD [phone] [place]: O St: PRE FAX: Joel Ramirez MD [phone] Name: DWIGHT ANG [facility] : 1960 Age/S: 57/F [address] [facility] Unit #: [id number] Loc: [place] [address] Phys: Anuj Castellanos MD Acct: [id number] Dis Date: Status: PRE SDC PHONE #: [phone] Exam Date: 10/20/2018 1017 FAX #: [phone] Reason: PRE OP EXAMS: CPT CODE: [id number] XR CHEST 2 V 48037 HISTORY: Preop. COMPARISON: Chest x-ray from October 17, 2014. AP and lateral view of the chest: No acute infiltrates, effusion or congestion. Mild scarring. Cardiac silhouette is normal. IMPRESSION: No acute infiltrates, effusion or congestion. at 1040 Reported and signed by: Evgeny Pope M.D. CC: Anuj Castellanos MD; Joel Russell MD Technologist: Nick Zamorano RT(R) Trnscrd Date/Time/By: 10/20/2018 (6519) : By: [email or web address] Orig Print D/T: S: 10/20/2018 (3295) PAGE 1 Signed Report SCR MAMM BILATERAL BENJAMIN CAD [id number] 09:38:53 - SCR MAMM BILATERAL BENJAMIN CAD DIGITALBILATERAL DIGITAL SCREENING MAMMOGRAM 3D/2D WITH CAD: 09/19/2018CLINICAL: Asymptomatic. Digital breast tomosynthesis was p erformed in addition to routine CC and MLO views. Current mammographic images w ere evaluated by either a [employer]-Vu or a [employer] CAD (computer ai ded detection system). Comparison is made to exams dated 09/13/2017 mammogram, 08/31/2016 mammogram, and 08/14/2015 mammogram - [facility]. Ther e are scattered fibroglandular tissues in both breasts. No suspicious mass, arc hitectural distortion, malignant type calcification, or lymph node abnormality d etected. Breast architecture is stable compared to prior exams.IMPRESSION: NEGA TIVEThere is no mammographic evidence of malignancy. Resume annual screening suellen mography in one year. Chilo Soto M.D. qn/penrad:09/19/2018 09:38:53 Jen pedersen Technologist: Ena AGUILAR, [facility] sent: B IRADS 1-2 Normal Mammogram BI-RADS: 1 [id number] 15:48:00 RUN DATE: 04/10/18 [facility] PAGE 1 RUN TIME: 1548 Specimen Inqui ry RUN USER: INTERFACE PATIENT: DWIGHT ANG ACCT #: [id number] LOC: [place] U #: [id number] AGE/SX: 57/F ROOM: RE04/06/18[facility] DR: Lew Lombardo MD : 60 BED: DIS: STATUS: [facility] TLOC: SPEC #: [id number] RECD: 04/06/18 STATUS: ALBARO JOLLY #: [id number] BREE: 04/06/[address] [facility] [address]: Lew Lombardo MD ENTERED: 04/06/18 SP TYPE: POLYP OTHR DR: Joel Russell MD ORDERED: GROSS COPIES TO: Lew Lombardo MD [address] [place] [address] Joel Russell MD [address] [place] [address] PROCEDURES: GROSS (04/10/18) TISSUES: 1. SIGMOID - POLYP 2. DESCENDING COLO N - POLYP CLINICAL HISTORY COLLECTION DATE: 04/06/2018 SCREENI NG COLON POLYPS, INTERNAL HEMORRHOIDS FINAL DIAGNOSIS Sigmoid c olon, polyp, snare polypectomy: COLONIC MUCOSA WITH FOCAL HYPERPLASTIC CH A[place] SUGGESTIVE OF HYPERPLASTIC POLYP NEGATIVE FOR MALIGNANCY Descending colon, biopsy X 4: HYPERPLASTIC POLYP(S) NEGATIVE FOR MALIGNANCY DMW/ D [id number] C ONTINUED ON NEXT PAGE RUN DATE: 04/10/18 [place] - [facility] PAGE 2 RUN TIME: 1548 Specimen Inquiry RUN USER: INTERFACE SPEC #: [id number] PATIENT: DWIGHT ANG #[id number] (Continued) - MACROSCOPIC The first specimen is received in formalin, labeled with the patient's name, identified as "Sigmoid polyp", and consists of pink b iopsy tissue measuring up to 0.2 cm in aggregate, submitted as (1). The second specimen is received in formalin, labeled with the patient's name, iden tified as "Descending colon", and consists of multiple abel-pink biopsy tissues measuring up to 0.25 cm in aggregate, submitted as (3). GROSS PERFORM ED AT [facility] [address] [place] [address], [place] [address] [phone] MICROSCOPIC MICROSCOPIC PERFORMED AT [facility] All of the stains, including any controls performed, stain appropriately. [facility] [address], [place] [address] [phone] PERFORMING SITE Diagnosis performed a t: [facility], [place] [address] [facility] [address] Signed SIGNATURE ON FILE RolleSuzan 04/10/18 1548 END OF REPORT [id number] 15:53:00 RUN DATE: 03/31/18 [facility] PAGE 1 RUN TIME: 1553 Specimen Inqui ry RUN USER: INTERFACE PATIENT: DWIGHT ANG ACCT #: V [id number] LOC: [facility] U #: [id number] AGE/SX: 57/F ROOM: RE03/30/18REG DR: Lew Lombardo MD : 60 BED: DIS: STATUS: [facility] TLOC: SPEC #: [id number] RECD: 03/30/18 STATUS: [facility] #: [id number] BREE: 03/30/18- [facility] DR: Lew Lombardo MD ENTERED: 03/30/18-1103 SP TYPE: STOMACH OTHR DR: Joel Russell MD ORDERED: GROSS COPIES TO: Lew Lombardo MD [address] [facility]. [address] [address] Joel Russell MD [address] [place] [address] PROCEDURES: GROSS (03/31/18-1516) TISSUES: 1. DUODENUM, NOS - BX 2. ANTRAL BIOPS Y - H-PYLORI 3. BODY BIOPSY OF STOMACH - BX 4. ESOPHAGUS, NOS - BRUSHING-4 SLIDES 5. ESOPHAGUS, NOS - BX CLINICAL HISTORY COL LECTION DATE: 03/30/18 ABDOMINAL PAIN, GALLSTONES COMMENT Mil dly increased numbers of lymphocytes are identified within the epithelium of the duodenal biopsy. The villous architecture is unremarkable. 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 The findings are non-specific but the most c ommonly associated diseases include celiac disease, H pylori gastritis, nonster oidal antiinflammatory drug use, bacterial overgrowth, tropical sprue and autoi mmune disorders. Clinical correlation is required. FINAL DIAGNOSIS Duodenum, cold biopsy: DUODENAL MUCOSA WITH UNREMARKABLE VILLOUS ARCHITEC TURE AND FEW INTRAEPITHELIAL LYMPHOCYTES, see comment NEGATIVE F OR MALIGNANCY CONTINUED ON NEXT PAGE ------ ------RUN DATE: 03/31/18 [place] [facility] PAGE 2 RUN TIME: 1553 Specimen Inquiry RUN USER: INTERFACE SPEC #: [id number] PATIENT: DWIGHT ANG #[id number] (Continued) FINAL DIAGNOSIS (Continued) Gastric antrum, cold biopsy: COMPATIBLE WITH MILD REACTIVE GASTROPATHY NO ACUTE INFLAMMATORY PRESENT NEGATIVE FOR I NTESTINAL METAPLASIA NEGATIVE FOR HELICOBACTER ORGANISMS NEGATIVE FOR MALIGNANCY Gastric body, cold biopsy: FRAGMENTS OF UNREMARKABLE APPEARING GASTRIC MUCOSA NEGATIVE FOR HELICOBACTER ORGANISMS E sophageal brushing, cytology: NUMEROUS BLAND EPITHELIAL CELLS (SQUAMES) A ND RARE INFLAMMATORY CELLS NO FUNGAL ORGANISMS IDENTIFIED BY GMS OR PAP S TAINS NEGATIVE FOR MALIGNANCY Esophagus, cold biopsy: SQ UAMOUS MUCOSA WITH MILD ELONGATION OF SQUAMOUS PAPILLAE AND RARE INTRAE PITHELIAL LYMPHOCYTES NO INCREASED NUMBER OF INTRAEPITHELIAL EOSINOPHILS NO GLANDULAR EPITHELIUM PRESENT NEGATIVE FOR MALIGNANCY SUG GESTIVE OF MILD REFLUX ESOPHAGITIS RRB/sm [phone], [phone], [phone] MACROSCOPIC The first specimen is received in formalin, labeled with the patient's name, identified as "duodenum cold bx", and consists of pi nk- abel biopsy tissue measuring 0.35 cm in aggregate, submitted as (1). The second specimen is received in formalin, labeled with the patient's name, identified as "antrum cold bx", and consists of pink-abel biopsy tissue measuri ng 0.35 cm in aggregate, submitted as (2) for H E and Giemsa stains. The t hird specimen is received in formalin, labeled with the patient's name, identi fied as "body cold bx", and consists of pink biopsy tissue measuring 0.35 cm i n aggregate, submitted as (3). The fourth specimen consists of four slides for processing and evaluation as (4). A GMS stain will also be prepared. The fifth specimen is received in formalin, labeled with the patient's name, identified as "esophagus cold bx", and consists of reed-pink biopsy tissue CONTINUED ON NEXT PAGE RUN DATE: [facility] PAGE 3 RUN TIME: 1553 Specimen Inquiry RU N USER: INTERFACE ---- --------SPEC #: [id number] PATIENT: DWIGHT ANG #[id number] (Continued) MACROSCOPIC (Continued) measuring 0.3 cm aggregate, submitted as (5). GROSS PERFORMED AT [address] [address] [phone] MICROSCOPIC MICROSCOPIC PERFORMED AT [facility] All of the stains, including any controls performed, stain appr opriately. [address] [address] [phone])[phone] PERFORMING SITE Diagnosis performed at: [facility], [place] [address] [place] [address] Signed SIGNATURE ON FILE Harley Henriquez 03/31/18 1553 END OF REPORT
--- NOTE | 2018-12-20 08:36 | Operative Report ---
DATE OF PROCEDURE: SURGEON: Josue Roca MD PROCEDURE: Intracoronary stent placement in the right coronary artery. INDICATION: Coronary artery disease. COMPLICATIONS: None. ANESTHESIA: Versed, fentanyl, and lidocaine. TECHNIQUE: The patient had a stent placed in the left anterior descending artery about 4-6 weeks ago. The patient was returning for a staged stent placement in the right coronary artery. The patient's right groin was draped and prepped in the usual manner. The area was anesthetized with lidocaine. Standard Seldinger technique was used to place a 6-Qatari sheath into the right femoral artery without difficulty. The patient was already on Plavix. The patient was bolused with Angiomax and started on an Angiomax drip. A JR4 guiding catheter with side holes was used to selectively engage the right coronary artery. A Whisper wire was used to across the area of stenosis. The stenosis was pre-dilated with a 2.5 x 12 mm balloon. A 2.75 mm x 24 mm Synergy stent was then deployed at 16 atmospheres for 30 seconds. The stent was then postdilated with a 2.75 x 12 mm noncompliant balloon. There was no residual stenosis. There were no complications. A Mynx device was used for closure. CONCLUSION: Successful stent placement in the right coronary artery without complication. Josue Roca MD DSH/MODL /[id number]
--- NOTE | 2018-12-20 09:00 | NUR ---
0900am Received pt in rm #9 LAD Fix Mynx closure to rt groin site Site w/o hematoma or oozing. Iv infusing well w/o s/s infiltration. Back to baseline orientation. Resp shallow and regular. 98% Ra abdomen soft and non tender denies necessity to defecate or urinate. Ok for dc at 2pm. DC papers discussed with family and pt has copies. offered po intake tolerating well. monitor NSR no ectopics No gross issues pain pallor or dysrhythmia.B/p trending high will monitor and report as appropriate. Side rails up call light at bedside Bed in low position. Family remains at bedside. ds/rn
--- NOTE | 2018-12-20 11:59 | NUR ---
1130 Dr. Roca notified elevation of bp continues and pt did not receive home bp meds this and am and has c/o rt groin pain 11/10 to site Site w/o s/s hematoma or oozing PPx4 PT/Dp present. [address] Roca and morphine 2mg ivp for rt groin discomfort and Hydralazine 10mg ivp as ordered with adequate results bp stabilized and pain relieved. ds/rn
--- NOTE | 2018-12-20 14:00 | NUR ---
1400pm HOB elevated Left iv removed and pt returned from bathroom. Rt groin site remains dry and intact w/o hematoma and PPx4 PT/DP present 2+/2+/2+/2+. Escorted to car with [facility] employee Son is local owner operator truck driver.Has copies POC and knows importance f/o care.No gross issues pain pallor pressure or dysrhythmia. ds/rn
== END | disposition home or self-care (01) ==
LOC: CATH LAB 06:57
PROVIDERS: ATTEND Internal Medicine Cardiovascular Disease
DX: I25.10 Atherosclerotic heart disease of native coronary artery without angina pectoris (principal); Z95.5 Presence of coronary angioplasty implant and graft; Z79.02 Long term (current) use of antithrombotics/antiplatelets; Z01.810 Encounter for preprocedural cardiovascular examination; Z01.812 Encounter for preprocedural laboratory examination; Z01.818 Encounter for other preprocedural examination
CPT/HCPCS: 36415; 71046; 80053; 85025; 85610; 85730; 93005; C1725 ×2; C1760; C1769 ×2; C1874; C9600; J0360; J0583; J1644; J2001; J2250; J2270; J7030; Q9967; 92928